=== PATIENT | male | born 1970 | race Caucasian/White ===

== ENCOUNTER → 2018-12-03 | Outpatient (CLI) | payer BC | END | disposition home or self-care (01) | LOC: RAH 13:44 | PROVIDERS: ATTEND Physical Medicine & Rehabilitation | DX: S32.009A Unspecified fracture of unspecified lumbar vertebra, initial encounter for closed fracture (principal); M43.06 Spondylolysis, lumbar region; N20.0 Calculus of kidney; X58.XXXA Exposure to other specified factors, initial encounter; Y93.89 Activity, other specified; Y92.89 Other specified places as the place of occurrence of the external cause; Y99.8 Other external cause status | CPT/HCPCS: 72131 ==